=== PATIENT | male | born 1940 | race Two or more races ===

== ENCOUNTER 2020-12-05 09:09 | Outpatient (CLI) | payer OTHER | END 2020-12-05 15:00 | disposition home or self-care (01) | LOC: LAB 09:09 | PROVIDERS: ATTEND Specialist | DX: E03.8 Other specified hypothyroidism (principal); N39.0 Urinary tract infection, site not specified; E78.2 Mixed hyperlipidemia; N40.1 Benign prostatic hyperplasia with lower urinary tract symptoms; E11.9 Type 2 diabetes mellitus without complications; J45.998 Other asthma ==

== ENCOUNTER → 2020-12-06 09:41 | Outpatient (CLI) | payer OTHER | END | disposition home or self-care (01) | LOC: LAB 09:41 | PROVIDERS: ATTEND Specialist | DX: E03.8 Other specified hypothyroidism (principal); N39.0 Urinary tract infection, site not specified; E78.2 Mixed hyperlipidemia; N40.1 Benign prostatic hyperplasia with lower urinary tract symptoms; E11.9 Type 2 diabetes mellitus without complications; Z12.11 Encounter for screening for malignant neoplasm of colon ==

== ENCOUNTER 2020-12-16 16:54 | Outpatient (CLI) | payer OTHER | END 2020-12-16 17:00 | disposition home or self-care (01) | LOC: LAB 16:54 | PROVIDERS: ATTEND Specialist | DX: R97.0 Elevated carcinoembryonic antigen [CEA] (principal); Z12.11 Encounter for screening for malignant neoplasm of colon ==

== ENCOUNTER → 2020-12-18 | Outpatient (CLI) | payer OTHER | END | disposition home or self-care (01) | LOC: TOM 10:20 | PROVIDERS: ATTEND Specialist | DX: C18.8 Malignant neoplasm of overlapping sites of colon (principal) ==

== ENCOUNTER → 2023-08-24 08:19 | Outpatient (CLI) | payer OTHER ==
[2023-08-24 09:33] LABS: HEMATOCRIT 38.5 % (39.0-48.0); HEMOGLOBIN 13.1 g/dL (13-16.00); MEAN CELL VOLUME 90.7 fL (80.0-100.00); MEAN CORPUSCULAR HGB CONC 34.2 g/dl (32.0-36.0); PLATELET COUNT 161 K/uL (150-450); RED BLOOD COUNT 4.24 M/uL (4.00-6.00); RED CELL DISTRIBUTION WIDTH 14.5 % (11.5-14.5)
[2023-08-24 09:59] LABS: INR 1.04; PARTIAL THROMBOPLASTIN TIME 30.3 SECONDS (22.0-34.0); PROTHROMBIN TIME 10.9 SECONDS (9.0-11.5)
[2023-08-24 10:33] LABS: ALKALINE PHOSPHATASE 41 U/L (50-136); ALT/SGPT 30 U/L (12-78); AST/SGOT 17 U/L (15-37); BILIRUBIN TOTAL 0.93 mg/dL (0.3-1.2); BILIRUBIN,CONJUGATED 0.26 mg/dL (0.0-0.2); BILIRUBIN,UNCONJUGATED 0.67 mg/dL (0.0-0.6); FERRITIN 59.5 NG/ML (26-388); TOTAL IRON BINDING CAPACITY 308 ug/dl (250-450); TOTAL PROTEIN 7.3 gm/dL (6.4-8.2)
[2023-08-24 10:47] LABS: PROSTATIC SPECIFIC ANTIGEN < 0.010 NG/ML (0.010-4.00)
[2023-08-24 11:37] LABS: FOLIC ACID > 20.00 ng/ml (4.78-20)
[2023-08-24 12:51] LABS: MANUAL PLATELET COUNT 264
[2023-08-24 12:52] LABS: PLATELET ESTIMATE NORMAL (NORMAL)
== END | disposition home or self-care (01) ==
LOC: LAB 08:19
PROVIDERS: ATTEND Specialist
DX: D69.6 Thrombocytopenia, unspecified (principal); D68.8 Other specified coagulation defects; D51.0 Vitamin B12 deficiency anemia due to intrinsic factor deficiency; N40.0 Benign prostatic hyperplasia without lower urinary tract symptoms

== ENCOUNTER 2024-06-07 08:09 | Outpatient (CLI) | payer OTHER ==
[2024-06-07 08:43] LABS: HEMATOCRIT 36.2 % (39.0-48.0); HEMOGLOBIN 12.7 g/dL (13-16.00); MEAN CELL VOLUME 90.2 fL (80.0-100.00); MEAN CORPUSCULAR HEMOGLOBIN 31.7 pg (27.00-32.0); MEAN CORPUSCULAR HGB CONC 35.1 g/dl (32.0-36.0); PLATELET COUNT 151 K/uL (150-450); RED BLOOD COUNT 4.01 M/uL (4.00-6.00); RED CELL DISTRIBUTION WIDTH 15.1 % (11.5-14.5)
[2024-06-07 09:33] LABS: PH,URINE 5.5 (5.0-8.0); URINE APPEARANCE Clear; URINE BILIRRUBIN Negative (NEGATIVE); URINE BLOOD Negative; URINE COLOR Yellow; URINE GLUCOSE Negative (NEGATIVE); URINE KETONE Negative (NEGATIVE); URINE LEUKOCYTE Negative; URINE NITRATE Negative; URINE PROTEIN Negative (NEGATIVE); URINE UROBILINOGEN 0.2 E.U./dl
[2024-06-07 09:34] LABS: URINE EPITHELIAL CELLS 6.1 uL (0.0-38.8); URINE RBC 3.6 uL (0.0-20.8); URINE WBC 2.3 uL (0.0-23.2)
[2024-06-07 09:39] LABS: ALBUMIN 3.9 gm/dL (3.4-5.0); BILIRUBIN TOTAL 0.95 mg/dL (0.3-1.2); BILIRUBIN,CONJUGATED 0.31 mg/dL (0.0-0.2); BILIRUBIN,UNCONJUGATED 0.64 mg/dL (0.0-0.6); CALCIUM 9.2 mg/dL (8.5-10.1); CHOL HDL RATIO 2.1 (0-5.0); CREATININE SERUM 1.06 mg/dL (0.70-1.30); GFR 66.56; GLOBULINA 3.1 G/DL (2.4-3.5); POTASSIUM 4.19 mEq/L (3.5-5.1); TSH 1.3 uIU/mL (0.358-3.74)
== END 2024-06-07 08:10 | disposition home or self-care (01) ==
LOC: RAD 08:09
PROVIDERS: ATTEND Specialist
DX: E03.9 Hypothyroidism, unspecified (principal); E11.21 Type 2 diabetes mellitus with diabetic nephropathy; N39.9 Disorder of urinary system, unspecified; E78.2 Mixed hyperlipidemia; E11.65 Type 2 diabetes mellitus with hyperglycemia; D64.9 Anemia, unspecified; J45.998 Other asthma

== ENCOUNTER → 2025-06-16 07:47 | Outpatient (CLI) | payer OTHER ==
[2025-06-16 08:41] LABS: BASO % 0.2 % (0.1-1.2); EOS # 0.13 (0.04-0.54); EOS % 2.7 % (0.7-7.0); LYMPH # 1.48 (1.18-3.74); LYMPH % 30.3 % (19.3-53.1); MEAN PLATELET VOLUME 10.20 fl (9.4-12.4); MONO # 0.48 (0.24-0.82); MONO % 9.8 % (4.7-12.5); NEUT # 2.78 (1.56-6.13); NEUT % 56.8 % (34.0-71.1); RED CELL DISTRIBUTION WIDTH 13.7 % (11.6-14.4)
[2025-06-16 09:02] LABS: INR 1.0
[2025-06-16 09:10] LABS: URINE APPEARANCE Clear; URINE BILIRRUBIN Negative (NEGATIVE); URINE BLOOD Negative; URINE COLOR Yellow; URINE GLUCOSE Negative (NEGATIVE); URINE KETONE Negative (NEGATIVE); URINE LEUKOCYTE Negative; URINE NITRATE Negative; URINE PROTEIN Negative (NEGATIVE); URINE UROBILINOGEN 0.2 E.U./dl
[2025-06-16 09:14] LABS: URINE RBC 2.7 uL (0.0-20.8)
[2025-06-16 09:22] LABS: CREATININE URINE RANDOM 115.0 MG/DL (30-125)
[2025-06-16 09:34] LABS: URINE WBC 0.9 uL (0.0-23.2)
[2025-06-16 09:35] LABS: URINE BACTERIA 3.6 uL (0.0-1933); URINE CAST 0.00 uL (0.0-1.40); URINE EPITHELIAL CELLS 1.2 uL (0.0-38.8)
[2025-06-16 09:40] LABS: ALT/SGPT 28 U/L (12-78); AST/SGOT 21 U/L (15-37); BILIRUBIN TOTAL 0.72 mg/dL (0.3-1.2); BILIRUBIN,CONJUGATED 0.21 mg/dL (0.0-0.2); BUN CREA RATIO 25 (7.0-25.0); CHOL HDL RATIO 2.1 (0-5.0); CREATININE SERUM 1.09 mg/dL (0.70-1.30); FREE TRIODOTIRONINE 2.29 pg/ml (2.18-3.98); GFR 64.29; GLOBULINA 3.4 G/DL (2.4-3.5); GLUCOSE FASTING 107 mg/dL (65-100); HDL 77 mg/dl (40-60); LDL 75 mg/dl (0-130); OSMOLALITY SERUM 289 MOSM/KG (275-295); T4 FREE 1.09 NG/ML (0.76-1.46); TSH 1.950 uIU/mL (0.358-3.74); VLDL 11 (0-39)
[2025-06-16 09:41] LABS: PROSTATIC SPECIFIC ANTIGEN < 0.010 NG/ML (0.010-4.00)
== END | disposition home or self-care (01) ==
LOC: LAB 07:47
PROVIDERS: ATTEND Specialist
DX: E03.9 Hypothyroidism, unspecified (principal); E11.21 Type 2 diabetes mellitus with diabetic nephropathy; N39.9 Disorder of urinary system, unspecified; N40.1 Benign prostatic hyperplasia with lower urinary tract symptoms; E78.2 Mixed hyperlipidemia; E11.65 Type 2 diabetes mellitus with hyperglycemia; D64.9 Anemia, unspecified; D68.8 Other specified coagulation defects; K75.81 Nonalcoholic steatohepatitis (NASH); N39.0 Urinary tract infection, site not specified; M81.0 Age-related osteoporosis without current pathological fracture; E11.9 Type 2 diabetes mellitus without complications; E78.9 Disorder of lipoprotein metabolism, unspecified; I11.9 Hypertensive heart disease without heart failure